=== PATIENT | male | born 1975 | race Caucasian/White ===

== ENCOUNTER 2019-08-11 11:14 | Outpatient (CLI) | payer OTHER ==
--- NOTE | 2019-08-11 13:13 | RAD ---
CHEST 2 VIEWS: Date: 08/11/2019 HISTORY: Dyspnea. FINDINGS: Heart size is within normal limits. The lungs are clear. No confluent pneumonia, overt edema, or pleu ral effusion. IMPRESSION: No significant acute intrathoracic disease. POS: [facility]
== END 2019-08-11 11:15 | disposition home or self-care (01) ==
LOC: RAD 11:14
PROVIDERS: ATTEND Internal Medicine Critical Care Medicine
DX: R06.00 Dyspnea, unspecified (principal)
CPT/HCPCS: 71046

== ENCOUNTER 2022-09-19 08:48 | Outpatient (CLI) | payer OTHER ==
[2022-09-19 10:04] LABS: #Eosinphils 0.2 10x3/uL (0.0-0.5); #Monocytes 0.7 10x3/uL (0.0-1.1); #Neutrophils 6.3 10x3/uL (1.5-8.4); %Basophils 0.4 % (0.0-2.0); %Eosinophils 1.5 % (0.0-6.0); %Monocytes 6.7 % (0.0-10.0); %Neutrophils 59.1 % (40.0-75.0); Mean Corpuscular Volume 84.9 fl (81.2-95.1); Mean Platelet Volume 9.3 fl (7.4-10.4); Platelet Count 281 10x3/uL (150-450); RBC Distribution Width 14.2 % (11.5-14.5); Red Blood Cell (RBC) Count 5.36 10x6/uL (4.32-5.72); White Blood Cell (WBC) Count 10.6 10x3/uL (3.5-10.5)
== END 2022-09-19 08:49 | disposition home or self-care (01) ==
LOC: LABBT 08:48
PROVIDERS: ATTEND Orthopaedic Surgery
DX: Z01.812 Encounter for preprocedural laboratory examination (principal); S29.011A Strain of muscle and tendon of front wall of thorax, initial encounter
CPT/HCPCS: 85025

== ENCOUNTER 2022-09-21 10:43 | Day surgery (SDC) | payer OTHER ==
[2022-09-19 13:32] VITALS: BMI 41.8
[2022-09-21] MEDS ORDERED: fentaNYL PF 100 MCG/2 ML SYRINGE ONE (12:01)
[2022-09-21] MEDS ORDERED: Dexmedetomidine 200 MCG/2 ML VIAL ONE (12:01)
[2022-09-21] MEDS ORDERED: Sodium Chloride 0.9% 100 ML ONE (12:24)
[2022-09-21] MEDS ORDERED: CEFAZOLIN 2 GM VIAL ONE (12:24)
[2022-09-21] MEDS ORDERED: SUGAMMADEX SODIUM 200 MG/2 ML VIAL ONE (12:28)
[2022-09-21] MEDS ORDERED: HYDROmorphone 2 MG/ML VIAL ONE (12:28)
[2022-09-21] MEDS ORDERED: PROPOFOL 200 MG/20 ML VIAL ONE (12:42)
[2022-09-21] MEDS ORDERED: Ketorolac Tromethamine 30 MG/ML VIAL ONE (12:42)
[2022-09-21] MEDS ORDERED: Ondansetron PF 4 MG/2 ML Vial ONE (12:42)
[2022-09-21] MEDS ORDERED: Dexamethasone 20 MG/5 ML VIAL ONE (12:42)
[2022-09-21] MEDS ORDERED: ePHEDrine Sulfate 50 MG/10 ML VIAL ONE (12:42)
[2022-09-21] MEDS ORDERED: Rocuronium Bromide 10 MG/ML (10ML VIAL) ONE (12:42)
[2022-09-21] MEDS ORDERED: Lidocaine 1% PF 5 ML VIAL ONE (12:42)
[2022-09-21] MEDS ORDERED: Bupivacaine HCl 0.5%/Epinephrine 1:200,000/PF 30 ml Vial ONE (13:11)
== END 2022-09-21 16:35 | disposition home or self-care (01) ==
LOC: SDC 10:43
PROVIDERS: ATTEND Orthopaedic Surgery
PROC: 0KQJ0ZZ Repair Left Thorax Muscle, Open Approach (ICD-10-PCS; principal; 2022-09-21)
DX: S29.011A Strain of muscle and tendon of front wall of thorax, initial encounter (principal); F17.220 Nicotine dependence, chewing tobacco, uncomplicated; Z79.899 Other long term (current) drug therapy; X50.0XXA Overexertion from strenuous movement or load, initial encounter; Y93.89 Activity, other specified; Y92.89 Other specified places as the place of occurrence of the external cause; Y99.0 Civilian activity done for income or pay
CPT/HCPCS: C1713; J1100; J1170; J1885; J2405; J2704; J3490